=== PATIENT | female | born 1965 | race Caucasian/White ===

== ENCOUNTER 2017-08-25 18:02 | Emergency (ER) | payer OTHER ==
[~2017-08-25] VITALS: Ht 177.8 cm; Wt 92.9 kg
[~2017-08-25 18:02] MED LIST: ASPEC81 PO; ENOX100I SC; FURO-85 PO; LISI-461 PO; LPT40 PO; METO50TA16 PO; NCDT21 TD; PANT40TA PO; PLV75 PO; WARF5TAB7 PO
[2017-08-25 18:11] VITALS: TEMP 36.9; Ht 177.8 cm; Wt 92.9 kg
[2017-08-25] MEDS ORDERED: MoRPHine SULFATE 4 MG/ML 1 ML CARP\\VIAL IV STA ×2 (18:12→20:10)
[2017-08-25] MEDS ORDERED: SODIUM CHLORIDE 0.9% 1000ML 1,000 ML IV STA (18:12)
[2017-08-25] MEDS ORDERED: ONDANSETRON INJ 2 MG/ML 2 ML VIAL IV STA (18:12)
[2017-08-25] MEDS ORDERED: OPTIRAY 320 IV PRN (18:15)
[2017-08-25] MEDS ORDERED: NRN100 PO (18:30)
[2017-08-25] MEDS ORDERED: HYDR-5688 PO (18:30)
[2017-08-25] MEDS ORDERED: ATOR-26 PO (18:30)
[2017-08-25] MEDS ORDERED: METF500T5 PO (18:30)
[2017-08-25] MEDS ORDERED: LSN20 PO (18:30)
[2017-08-25] MEDS ORDERED: METO50TA17 PO (18:30)
[2017-08-25] MEDS ORDERED: ATV1 PO (18:30)
[2017-08-25] MEDS ORDERED: NRV/5 PO (18:30)
[2017-08-25] MEDS ORDERED: HYDR5SYP11 PO (18:30)
[2017-08-25] MEDS ORDERED: CLOP1TAB15 PO (18:30)
[2017-08-25 18:34] LABS: BASO % 0.2 %; BASO ABS # 0.02 K/uL (0-0.2); EOS % 1.6 %; EOS ABS # 0.19 K/uL (0-0.5); HEMATOCRIT 41.9 % (37-47); HEMOGLOBIN 14.7 g/dL (12.0-16.0); IG# 0.04 K/uL (0.00-0.02); LYMPH % 26.9 %; LYMPH ABS # 3.19 K/uL (1.2-3.4); MEAN CELL VOLUME 90.7 fL (80-100); MEAN CORPUSCULAR HEMOGLOBIN 31.8 pg (25-34); MEAN CORPUSCULAR HGB CONC 35.1 g/dl (32-36); MEAN PLATELET VOLUME 10.4 fL (7.4-10.4); MONO ABS # 0.71 K/uL (0.11-0.59); NEUT ABS # 7.72 K/uL (1.4-6.5); PLATELET COUNT 321 K/uL (130-400); RED CELL DISTRIBUTION WIDTH CV 12.5 % (11.5-14.5); RED CELL DISTRIBUTION WIDTH SD 41.8 fL (36.4-46.3); WHITE BLOOD COUNT 11.87 K/uL (4.8-10.8)
[2017-08-25] MEDS ORDERED: KETO2SHA TOP (18:35)
[2017-08-25] MEDS ORDERED: METF1TAB53 PO (18:35)
[2017-08-25 18:39] LABS: ISTAT CREATININE 1.6 mg/dl (0.6-1.3); ISTAT IONIZED CALCIUM 1.08 mmol/l (1.12-1.32); ISTAT POTASSIUM 3.1 mEq/L (3.3-5.0)
[2017-08-25 18:50] LABS: INR 1.8 (0.9-1.1); PTT PATIENT 30.4 SECONDS (21.0-31.0)
[2017-08-25 18:51] LABS: ALBUMIN 3.7 gm/dl (3.4-5.0); ALT/SGPT 29 U/L (12-78); BLOOD UREA NITROGEN 22 mg/dl (7-18); CALCIUM 9.2 mg/dl (8.5-10.1); CARBON DIOXIDE 24 mmol/L (21-32); CREATININE 1.51 mg/dl (0.60-1.20); GLUCOSE 142 mg/dl (70-99); POTASSIUM 3.1 mmol/L (3.5-5.1); SODIUM 137 mmol/L (136-145)
[2017-08-25 18:56] LABS: ALKALINE PHOSPHATASE 108 U/L (45-117); AST/SGOT 17 U/L (15-37); TOTAL PROTEIN 7.9 gm/dl (6.4-8.2)
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
[2017-08-25 20:33] VITALS: BP 112/72; PULSE 80; O2SAT 96
[2017-08-25] MEDS ORDERED: TRAM-10 PO (23:48)
[2017-08-25] MEDS ORDERED: ONDA8TAB6 PO (23:55)
[2017-08-25] MEDS ORDERED: CYCL5TAB PO (23:57)
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
== END 2017-08-25 20:34 | disposition home or self-care (01) ==
LOC: EDBD 18:02 → C.EDB 18:03
DX: T14.90XA Injury, unspecified, initial encounter (principal); R07.9 Chest pain, unspecified; R10.11 Right upper quadrant pain; M25.522 Pain in left elbow; V89.2XXA Person injured in unspecified motor-vehicle accident, traffic, initial encounter; E87.6 Hypokalemia; I25.10 Atherosclerotic heart disease of native coronary artery without angina pectoris; E11.9 Type 2 diabetes mellitus without complications; I10 Essential (primary) hypertension; F17.200 Nicotine dependence, unspecified, uncomplicated; Z79.899 Other long term (current) drug therapy

== ENCOUNTER 2017-10-31 06:27 | Day surgery (SDC) | payer OTHER ==
[2017-10-28 16:06] VITALS: BMI 28.0
[~2017-10-31] VITALS: Ht 175.3 cm; Wt 88.6 kg
[~2017-10-31 06:27] MED LIST changes: -ASPEC81 PO; +ASPI81TA28 PO; +ATOR-26 PO; +ATV1 PO; +CLOP1TAB15 PO; +CYCL5TAB PO; -ENOX100I SC; +HYDR-5688 PO; +LACTATED RINGER'S 1000ML 1,000 ML IV SCH; -LISI-461 PO; -LPT40 PO; +LSN20 PO; +METF1TAB53 PO; -METO50TA16 PO; +METO50TA17 PO; -NCDT21 TD; +NRV/5 PO; +ONDA-170 PO; -PLV75 PO; +TRAM-10 PO
[2017-10-31 06:50] VITALS: BP 121/86; PULSE 69; TEMP 36.7; O2SAT 98; Ht 175.3 cm; Wt 88.6 kg
[2017-10-31] MEDS ORDERED: FENTANYL CITRATE INJ 50 MCG/1 ML 2 ML VIAL ONE (07:11)
[2017-10-31] MEDS ORDERED: MIDAZOLAM HCL 1 MG/ML 2ML VIAL ONE (07:11)
[2017-10-31] MEDS ORDERED: DexMEDEtomidine HCL IV 100 MCG/ML VIAL IV ONE (07:21)
[2017-10-31] MEDS ORDERED: ATROPINE SULFATE 0.1 MG/ML 5ML SYR IV PRN (08:15)
[2017-10-31] MEDS ORDERED: EpHEDrine SULFATE INJ 50 MG/ML AMP IV PRN (08:15)
[2017-10-31] MEDS ORDERED: FLUMAZENIL 0.1 MG/1 ML 10 ML VIAL IV ONE (08:35)
[2017-10-31] MEDS ORDERED: ONDANSETRON INJ 2 MG/ML 2 ML VIAL ONE (08:35)
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
--- NOTE | 2017-10-31 09:15 | Anesthesiology Progress Note ---
Anesthesia Post Op Note Date & Time Oct 31, 2017 at 09:15 Vital Signs Pain Intensity: 0 Vital Signs Past 12 Hours Date Time Temp Pulse Resp B/P (MAP) Pulse Ox O2 Delivery O2 Flow Rate FiO2 10/31/17 09:05 65 17 86/64 (72) 92 Room Air 10/31/17 08:56 36.0 68 16 93/57 (69) 94 Oxymask 10 10/31/17 06:50 36.7 69 18 121/86 (98) 98 Room Air Notes Mental Status: alert / awake / arousable, participated in evaluation Pt Amnestic to Procedure: Yes Nausea / Vomiting: adequately controlled Pain: adequately controlled Airway Patency, RR, SpO2: stable & adequate BP & HR: stable & adequate Hydration State: stable & adequate Anesthetic Complications: no major complications apparent
--- NOTE | 2017-10-31 09:17 | DIAGNOSTIC IMAGING REPORT ---
CERVICAL WITHOUT CONTRAST HISTORY: Pain. Neuropathy. WITH ANESTHESIA. TECHNIQUE: Multiplanar multisequence MRI of the cervical spine was performed without the use of contrast. COMPARISON STUDY: None. FINDINGS: Normal signal characteristics of the vertebral bodies. No significant bone marrow replacing process. Mild degenerative disc changes throughout. Normal signal characteristics of the cervical cord. C2-C3: Negative C3-C4: Broad-based bulging disc with mild posterior osteophytic change. Contact with but no underlying only minimal deformity anterior cervical cord. Significant narrowing of the neuroforamina bilaterally. C4-C5: No significant central canal or neural foraminal narrowing. C5-C6: Mild broad-based disc herniation. Mild impact upon the anterior cervical cord. Significant narrowing of the neuroforamina bilaterally. C6-C7: Mild broad-based disc herniation. Minimal impact with the anterior cervical cord. Significant narrowing of the left and to lesser extent right neuroforamina. C7-T1: No significant central canal or neural foraminal narrowing. IMPRESSION: 1. Broad-based disc herniation C5-C6 with significant narrowing of the neuroforamina bilaterally. 2. Mild broad-based disc herniation C6-C7 with significant narrowing of the left and to a lesser extent right neuroforamina. 3. Broad-based bulging disc C3-C4 creates significant narrowing of the neuroforamina bilaterally. The above report was generated using voice recognition software. It may contain grammatical, syntax or spelling errors. Electronically signed by: Ky Ferrer M.D. 10/31/2017 9:16 AM Dictated Date/Time: 10/31/2017 9:09 AM
[2017-10-31] MEDS ORDERED: NURSING VERBAL MED ORDER ONE (09:20)
[2017-10-31] MEDS ORDERED: TRAMADOL HCL 50 MG TAB ONE (09:22)
[2017-10-31 09:31] VITALS: BP 111/74; PULSE 68; TEMP 36.3; O2SAT 92
[2017-10-31 09:45] VITALS: BP 124/73; PULSE 64; TEMP 36.4; O2SAT 94
[2017-10-31 10:05] VITALS: BP 129/77; PULSE 61; TEMP 36.4; O2SAT 95
== END 2017-10-31 10:29 | disposition home or self-care (01) ==
LOC: C.ACU 06:27
PROVIDERS: ATTEND Psychiatry & Neurology Neurology
DX: F07.81 Postconcussional syndrome (principal); I25.2 Old myocardial infarction; I10 Essential (primary) hypertension; E11.9 Type 2 diabetes mellitus without complications; M50.30 Other cervical disc degeneration, unspecified cervical region; Z86.718 Personal history of other venous thrombosis and embolism; Z79.899 Other long term (current) drug therapy; Z79.01 Long term (current) use of anticoagulants; Z91.040 Latex allergy status; Z88.0 Allergy status to penicillin